=== PATIENT | female | born 1990 | race Caucasian/White ===

== ENCOUNTER 2020-11-19 06:54 | Inpatient (IN) ==
--- NOTE | 2020-11-08 09:02 | Communication Note ---
Date of Service: November 08, 2020 Dr. Purcell called questioning need for updated COVID test, as policies are in the process of changing. Patient confirmed COVID positive on 08/31/20 (lab record scanned to EMR). Patient reported she was retested on 09/15 and resulted negative. Scheduled for C/S on 11/19, at which point patient will be > 60 days from diagnosis. Spoke to Dr. Callahan to clarify protocol. As she is > 45 days beyond + test, but < 90, case will need to be reviewed by Dr. Locke. L+D made aware. If Dr. Locke feels patient does need updated COVID, will notify L[facility]D/[facility] to order and arrange, and will make patient aware.
--- NOTE | 2020-11-17 14:44 | Anesthesiology Consultation ---
Date of Service November 17, 2020 The patient had Covid 19 in August,. 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 No recent known Covid positive contacts or Covid related symptoms Pt did test Covid positive 08/31/20- symptoms included loss of taste and smell, congestion, nausea, diarr hea, cough, poor appetite- symptoms have since resolved. Pt is not getting preop Covid testing done due to having Covid in the past 90 days. Case was discussed with Dr. Locke 11/08/20= "As long as patient is asymptomatic and low-risk screening, no need for repeat COVID test. Patient reports she wears an N95 and face shield all day at work, and does not leave the house otherwise (even orders groceries for pick-up). Her also only leaves the house for work, where h e works outside and wears a mask. Patient and OB office made aware she will not need to be retested." History Surgery Operation Date: 11/19/20 08:50 Proposed Procedures p Section - Lexy Fonseca MD Height/Weight Height: 5 ft 5 in Weight: 103.873 kg Allergies Allergy/AdvReac Type Severity Reaction Status Date / Time meperidine [From Demerol] AdvReac Severe Vomiting Verified 11/18/20 08:48 Medications Home Medications Medication Instructions Recorded Confirmed Last Taken prenat.vits,mel,rly-[id number]-[id number] 1 tab PO PM 04/09/20 11/18/20 Unknown Past Medical History Medical History Acid reflux no meds Adopted Chlamydia hx > 6 yrs ago Depression with anxiety History of pre-eclampsia 2.5 yrs ago History of varicella vaccination Ovarian cyst just monitoring Placenta abruptio Past Family History Family History Denies family history of Ovarian cancer Breast cancer Colorectal cancer Uterine cancer Past Surgical History Surgical History History of x1 History of esophagogastroduodenoscopy (EGD) History of tonsillectomy Hx of cholecystectomy [place] teeth removed Social History Smoking Status: Never smoker Do You Dip or Chew Tobacco: No Hx Alcohol Use: No Hx Substance Use: No substance use type: does not use Physical Exam Vital Signs Last Vital Signs Temp 36.9 C 11/19/20 08:08 Pulse 88 11/19/20 07:13 Resp 18 11/19/20 08:08 BP 134/80 11/19/20 07:13 Testing Laboratory Results 11/19/20 07:06 Blood Type A Positive 11/19/20 07:04 Antibody Screen NEGATIVE 11/19/20 07:04
--- NOTE | 2020-11-18 17:53 | History & Physical Report ---
Date of Service November 18, 2020 Assessment & Plan (1) : (2) Previous delivery affecting , antepartum: 30 y/o at 39 wga presents for pre-op for scheduled repeat CS -VSS -FHT auscultated wnl today -Consent reviewed in detail with risks reviewed including infection, bleeding, injury to adjacent structures (bowel, bladder, ureters, blood vessels, nerves) and/or , possible need for life-saving blood transfusion and/or hysterectomy, VTE risk, anesthesia risk. Reviewed alternative to labor and pt declines. Aware would not be candidate for at this institution following second CS. Declines tubal ligation. Ample time given for questions, all questions answered to pt satisfaction, consent signed -Will sit with surgical scheduler for further instructions History of Present Illness Chief Complaint: Elective Repeat CS Primary Care Provider: Jaren Alcazar DO 30 y/o at 39 wga w/ CINTIA 11/25/20 by LMP 02/19/20 c/w [address] [place] [address]. 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: G1 pLTCS at 37 wks at [facility] emergently for placental abruption G2 current Menarche 16, cycles q28 days last pap 08/2019 neg cytology, no hx abnl pap remote hx chlamydia Allergies Allergy/AdvReac Type Severity Reaction Status Date / Time meperidine [From Demerol] AdvReac Severe Vomiting Verified 11/18/20 08:48 Home Medications Medication Instructions Recorded Confirmed Type prenat.vits,mel,evb-igzs-qaqob 1 tab PO PM 04/09/20 11/18/20 History Patient History Medical History Acid reflux no meds Adopted Chlamydia hx > 6 yrs ago Depression with anxiety History of pre-eclampsia 2.5 yrs ago History of varicella vaccination Ovarian cyst just monitoring Placenta abruptio Surgical History History of x1 History of esophagogastroduodenoscopy (EGD) History of tonsillectomy Hx of cholecystectomy [place] teeth removed Family History Denies family history of Ovarian cancer Breast cancer Colorectal cancer Uterine cancer Social History Smoking Status: Never smoker Second Hand Exposure: Yes (mom smoked); Hx Alcohol Use: No Hx Substance Use: No Preferred Language: [place] Communication Ability: Effective 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 Beliefs That Will Affect Care: None marital status: marital status details: Floyd Sample [phone] Current Living Situation: Spouse and Family Current Living Situation Comment: lives with spouse and son, 1 cat, not changing litter current occupational status: employed current occupation: [employer] in [place] Feels Safe at Home: Yes Assistive Devices: Glasses Physical Exam Constitutional: well developed and well nourished; no acute distress Respiratory: normal respiratory effort, lungs clear to auscultation no labored breathing Cardiovascular: RRR, no murmur, no edema Psychiatric: A+Ox3, euthymic affect Genitourinary: OB Exam Abdomen: + fundal height (39) and + heart tones (140s) Results & Data ([facility]) Laboratory Results OB Labs: Blood Type A Positive 04/16/20 Antibody Screen NEGATIVE 04/16/20 Hemoglobin 12.8 g/dL (12.0-16.0) 09/16/20 Hematocrit 40.1 % (37-47) 09/16/20 Mean Corpuscular Volume 85.4 fL (80-100) 04/16/20 Platelet Count 279 K/uL (130-400) 04/16/20 Rubella IgG Antibody Immune (Immune) 04/16/20 Rapid Plasma Reagin Nonreactive (Nonreactive) 04/16/20 Hepatitis B Surface Antigen Neg (Neg) 04/16/20 HIV (1&2) Ab and P24 Ag, 4th Gener Neg (Neg) 04/16/20 Glucose 1 Hour 50 gm Load 113 mg/dl (70-130) 09/16/20 OB Optional Labs: Chlamydia trachomatis RNA NOT DETECTED (NOT DETECTED) 04/16/20 Neisseria gonorrhoeae RNA NOT DETECTED (NOT DETECTED) 04/16/20 Thyroid Stimulating Hormone (TSH) 2.600 uIu/ml (0.300-4.500) 08/27/19 panorama low risk cf/sma done in prior declines MSAFP GBS neg COVID test not indicated, had covid in fall Diagnostic Findings Posterior placenta Coding Level of Care Code None Diagnoses Z34.90 Previous delivery affecting , antepartum O34.219
[~2020-11-19 06:54] MED LIST: CITRIC ACID/SODIUM CITRATE 15 ML UDC PO SCH; LACTATED RINGER'S 1,000 ML IV SCH; ceFAZolin 3,000 MG in DEXTROSE 5% 50 ML IV SCH
[2020-11-19 07:11] LABS: Basophils # (auto) 0.02 K/uL (0-0.2); Basophils % (auto) 0.2 %; Eosinophils # (auto) 0.05 K/uL (0-0.5); Eosinophils % (auto) 0.6 %; Hemoglobin 13.5 g/dL (12.0-16.0); Immature Granulocytes # (auto) 0.02 K/uL (0.00-0.02); Immature Granulocytes % (auto) 0.2 %; Lymphocytes # (auto) 1.42 K/uL (1.2-3.4); Lymphocytes % (auto) 17.6 %; Mean Corpuscular Hemoglobin 29.5 pg (25-34); Mean Corpuscular Hgb Conc 33.8 g/dL (32-36); Mean Corpuscular Volume 87.5 fL (80-100); Mean Platelet Volume 11.6 fL (7.4-10.4); Monocytes # (auto) 0.59 K/uL (0.11-0.59); Monocytes % (auto) 7.3 %; Neutrophils # (auto) 5.99 K/uL (1.4-6.5); Neutrophils % (auto) 74.1 %; Platelet Count 198 K/uL (130-400); RDW Coefficient of Variation 14.6 % (11.5-14.5); Red Blood Count 4.57 M/uL (4.2-5.4); White Blood Count 8.09 K/uL (4.8-10.8)
[2020-11-19] MEDS ORDERED: MoRPHine SULFATE PF 1 MG/ML 10 ML AMP/VIAL ONE (08:26)
[2020-11-19] MEDS ORDERED: fentaNYL citrate 100 MCG/2 ML VIAL ONE (08:26)
[2020-11-19] MEDS ORDERED: OXYTOCIN 10 UNITS/ML VIAL ONE ×2 (08:28→10:18)
--- NOTE | 2020-11-19 09:01 | History & Physical Bridge Note ---
Date of Service November 19, 2020 History & Physical Bridge Note I have examined the patient, reviewed the History & Physical and in the interval since the performance of the History & Physical I have noted the following changes of clinical significance: no changes noted. Cat 1 tracing obtained on admission.
[2020-11-19] MEDS ORDERED: ONDANSETRON INJ 2 MG/ML 2 ML VIAL ONE (09:58)
[2020-11-19] MEDS ORDERED: PHENYLEPHRINE 100MCG/ML 5ML SYR ONE (09:59)
[2020-11-19] MEDS ORDERED: ePHEDrine sulfate 50 MG/ML AMP IV PRN (10:29)
[2020-11-19] MEDS ORDERED: LACTATED RINGER'S 500 ML IV PRN (10:29)
[2020-11-19] MEDS ORDERED: MoRPHine SULFATE PF 1 MG/ML 10 ML AMP/VIAL INT SPINAL ONE (10:29)
[2020-11-19] MEDS ORDERED: ONDANSETRON INJ 2 MG/ML 2 ML VIAL IV PRN ×2 (10:29→11:32)
[2020-11-19] MEDS ORDERED: NALOXONE HCL 0.4 MG/1 ML VIAL/CARP IV PRN (10:29)
[2020-11-19] MEDS ORDERED: HYDROmorphone INJ 0.5 MG/0.5 ML SYR IV PRN (10:29)
[2020-11-19] MEDS ORDERED: diphenhydrAMINE 50 MG/ML VIAL IV PRN (10:29)
[2020-11-19] MEDS ORDERED: NALOXONE HCL 0.08 MG in SYRINGE 1.8 ML IV PRN (10:29)
[2020-11-19] MEDS ORDERED: NALOXONE HCL 1 MG in SODIUM CHLORIDE 0.9% 1000ML 1,000 ML IV PRN (10:29)
[2020-11-19] MEDS ORDERED: DC INTRASPINAL MORPHINE SCH (10:30)
[2020-11-19] MEDS ORDERED: NO NARCOTICS OR SEDATIVES SCH (10:30)
[2020-11-19] MEDS ORDERED: SODIUM CHLORIDE 0.9% 1000ML 1,000 ML IV SCH (10:30)
--- NOTE | 2020-11-19 11:08 | Post Operative Brief Note ---
PG Immediate Post Op with CF Date of Surgery November 19, 2020 Pre & Post Diagnosis Operation Date: 11/19/20 08:50 Pre-Op Diagnosis: Single Intrauterine at 39 1/7 weeks gestation; History of Caesaren Section times one, esires Repeat Post-Op Diagnosis: Same;Delivery of a live male child at 1017(Main OR 3) I identified the patient and participated in the time-out.: Yes Procedure Operation Date: 11/19/20 08:50 Actual Procedures p Repeat Low Transverse Section in LD - Lexy Fonseca MD Surgeon Lexy Fonseca MD Bee Farmer MD [place] Estimated Blood Loss 600 Findings Consistent with Post-Op Diagnosis Uterus with thin lower uterine segment, L fallopian tube with salpingiosis, R fallopian tube wnl. Ovaries wnl bilaterally. Findings also include viable male infant weight 3745g, APGARS 8 and 9 at 1 and 5 minutes, respectively Fluids 2200cc crystalloid, UOP 650 clear urine Specimens Specimen Description: A. Placenta-hold B. Cord Blood Drains Garza Catheter (Draining clear urine) Anesthesia Type L&D Only Epidural Exists Complications none Disposition Accompanied Patient To Recovery: Yes Disposition: L&D
--- NOTE | 2020-11-19 11:23 | Operative Report ---
PG Post Operative Report Pre & Post Diagnosis Operation Date: 11/19/20 08:50 Pre-Op Diagnosis: Single Intrauterine at 39 1/7 weeks gestation; History of Caesaren Section times one, desires Repeat Post-Op Diagnosis: Same;Delivery of a live male child at 1017(Main OR 3) I identified the patient and participated in the time-out.: Yes Procedure Operation Date: 11/19/20 08:50 Actual Procedures p Repeat Low Transverse Section in LD - Lexy Fonseca MD Surgeon Lexy Fonseca MD Rn Icu Caty Patricia MD Estimated Blood Loss 600 Findings Consistent with Post-Op Diagnosis Uterus with thin lower uterine segment and filmy bladder adhesions. L fallopian tube with salpingiosis, R fallopian tube wnl. Ovaries wnl bilaterally. Findings also include viable male weight 3745g, APGARS 8 and 9 at 1 and 5 minutes, respectively Fluids 2200cc crystalloid, UOP 650 clear urine Specimens Cord blood, placenta for hold Drains Garza draining clear urine Anesthesia Type L&D Only Epidural Exists Complications none Disposition Accompanied Patient To Recovery: Yes Disposition: L&D Indications 30 y/o at 39 1/7 wga w/ CINTIA 11/25/20 by LMP 02/19/20 c/w 1st tri US presents for scheduled elective repeat CS. Has a history of x 1 secondary to placental abruption and non-reassuring heart tones. She was counseled regarding TOLAC vs elective repeat and had previously desired to TOLAC. However, developed anxiety regarding movement and desired to undergo repeat . She was counseled regarding risks, benefits, and alternatives and consent was signed. Category 1 tracing was noted prior to delivery. Description of Procedure The patient was taken to the operating room after consents were ensured. The patient was properly identified and surgical timeout. Spinal anesthesia was obtained without difficulty. The patient was placed in a dorsal supine position with left lateral tilt. The patient was prepped and draped in normal sterile fashion. Antibiotic prophylaxis was given per protocol. Anesthesia was tested to ensure adequate surgical levels. Pfannenstiel skin incision was performed and carried down to the underlying fascia with a knife. The fascia was then nicked in the midline and extended laterally with pickups and Voss scissors. The superior portion of the fascia was grasped with Kochers x2 and elevated off the underlying rectus muscles using the knife. While developing this plane, peritoneum was noted to have been entered without injury to underlying structures. The inferior portion of the fascia was then grasped with Karin clamps x2 and also elevated off the underlying muscles with blunt dissection. The peritoneum was then swept and abdomen was noted to be clear of adhesions. Peritoneum was then extended to provide adequate room for delivery of baby. The hand was inserted into the abdomen, uterus was noted to be clear of adhesions and not rotated. Bladder blade was inserted. Bladder flap was created in the normal fashion. Lower uterine segment was noted to be thin. A low transverse uterine incision was then made in the uterus and extended bluntly in a superior to inferior fashion. Amniotomy was made with an Allis, with clear fluid at the time of rupture. head was grasped and elevated through the hysterotomy in an atraumatic fashion. The baby delivered in OPAL position, no nuchal cord. Remainder of the body delivered without incident. Nose and mouth were bulb suctioned on the surgical field. 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 Cord segment and blood were obtained. Placenta was then expressed from the uterus. The uterus was exteriorized. Several passes were made inside the uterus to remove the remaining membranes. Attention was then turned to the hysterotomy, which was then closed with a running locked suture of 0 Vicryl on a CTX needle. Imbricating layer was then performed using 0-Monocryl. There was noted to be good hemostasis. The posterior cul-de-sac was then inspected and cleaned of clot and debris. The hysterotomy was again inspected and noted to be hemostatic. The uterus was returned to the abdomen. The right and left pericolic gutters were cleaned of all clot and debris. The hysterotomy was again noted to be hemostatic. Space of Retzius was noted to be hemostatic. The fascia was then closed with a running suture of 0 Vicryl on a CT1 needle. Subcutaneous tissue was copiously irrigated and noted to be hemostatic. Subcutaneous tissue was re-approximated using 2-0 plain gut. The skin was then closed with a running suture of 3-0 Monocryl in a subcuticular fashion. At termination of the procedure, the fundal pressure was applied and a moderate amount of lochia was expressed. Dermabond was applied to the patient. She tolerated the procedure well. All sponge, needle, instrument counts were correct x 2. I attest to the content of the Intraoperative Record and any orders documented therein. Any exceptions are noted below. OB Procedure charges OB Charges 01230 C/S
[2020-11-19] MEDS ORDERED: SUPERCREAM 0.870% 15 GM JAR EXT PRN (11:32)
[2020-11-19] MEDS ORDERED: LACTATED RINGER'S 1,000 ML IV SCH (11:32)
[2020-11-19] MEDS ORDERED: HYDROCORTISONE ACETATE 25 MG SUPP PR PRN (11:32)
[2020-11-19] MEDS ORDERED: BENZOCAINE 20% AER SPR 82.5 GM CAN EXT PRN (11:32)
[2020-11-19] MEDS ORDERED: OXYTOCIN 20 UNITS in LACTATED RINGER'S 1,000 ML IV SCH (11:32)
[2020-11-19] MEDS ORDERED: MAGNESIUM HYDROXIDE SUSP 30 ML UDC PO PRN (11:32)
[2020-11-19] MEDS ORDERED: SENNA 8.6 MG TAB PO PRN (11:32)
[2020-11-19] MEDS ORDERED: DIPHTHERIA/TETANUS/PERTUSSIS 0.5 ML SYR/VIAL IM ONE (12:00)
--- NOTE | 2020-11-19 12:19 | Anesthesiology Progress Note ---
Date of Service November 19, 2020 Anesthesia Post Procedure Vital Signs Vital Signs: Temp Pulse Resp BP Pulse Ox 11/19/20 12:14 93 H 98 11/19/20 12:11 76 106/61 11/19/20 12:09 85 99 11/19/20 12:04 79 98 11/19/20 12:01 86 115/69 11/19/20 11:59 96 H 99 11/19/20 11:54 92 H 98 11/19/20 11:51 94 H 123/75 11/19/20 11:49 83 99 11/19/20 11:44 96 H 98 11/19/20 11:41 91 H 116/65 11/19/20 11:39 90 98 11/19/20 11:34 98 H 97 11/19/20 11:31 78 116/57 L 11/19/20 11:29 88 99 11/19/20 11:24 91 H 97 11/19/20 11:21 84 115/60 11/19/20 11:19 94 H 98 11/19/20 11:14 87 96 11/19/20 11:12 85 86 L 11/19/20 11:09 83 97 11/19/20 11:04 82 96 11/19/20 11:00 90 120/62 94 11/19/20 10:59 90 95 11/19/20 09:29 93 H 97 11/19/20 09:24 87 99 11/19/20 09:19 86 99 11/19/20 09:14 85 99 11/19/20 09:09 86 99 11/19/20 08:08 36.9 C 18 11/19/20 07:13 88 134/80 Transfer of Care Handoff Completed per policy Notes Mental Status: alert / awake / arousable Patient Amnestic to Procedure: Yes Nausea / Vomiting: adequately controlled Pain: adequately controlled Airway Patency, RR, SpO2: stable & adequate BP & HR: stable & adequate Hydration State: stable & adequate Neuraxial Anesthesia: was administered and sensory block is resolving Anesthetic Complications: no major complications apparent and Pt Satisfied with anesthetic care
[2020-11-19] MEDS: KETOROLAC 30 MG/ML VIAL IV PRN (12:51)
[2020-11-19] MEDS: SIMETHICONE 80 MG CHEW PO SCH ×2 (16:22→21:00)
[2020-11-19] MEDS: DOCUSATE SODIUM 100 MG CAP PO SCH (21:00)
[2020-11-20] MEDS: KETOROLAC 30 MG/ML VIAL IV PRN (04:27)
[2020-11-20] MEDS ORDERED: diphenhydrAMINE Capsule 25 MG CAP PO PRN (04:30)
[2020-11-20] MEDS ORDERED: KETOROLAC 30 MG/ML VIAL IV PRN (04:30)
[2020-11-20] MEDS ORDERED: diphenhydrAMINE 50 MG/ML VIAL IV PRN (04:30)
[2020-11-20] MEDS ORDERED: PROMETHAZINE HCL 25 MG in SODIUM CHLORIDE 0.9% 50 ML IV PRN (04:30)
[2020-11-20 06:54] LABS: Basophils # (auto) 0.01 K/uL (0-0.2); Basophils % (auto) 0.1 %; Eosinophils # (auto) 0.06 K/uL (0-0.5); Eosinophils % (auto) 0.6 %; Hematocrit (blood only) 40.2 % (37-47); Hemoglobin 13.2 g/dL (12.0-16.0); Immature Granulocytes # (auto) 0.01 K/uL (0.00-0.02); Immature Granulocytes % (auto) 0.1 %; Lymphocytes # (auto) 1.22 K/uL (1.2-3.4); Lymphocytes % (auto) 12.1 %; Mean Corpuscular Hemoglobin 28.8 pg (25-34); Mean Corpuscular Hgb Conc 32.8 g/dL (32-36); Mean Corpuscular Volume 87.8 fL (80-100); Mean Platelet Volume 11.9 fL (7.4-10.4); Monocytes # (auto) 0.75 K/uL (0.11-0.59); Monocytes % (auto) 7.5 %; Neutrophils % (auto) 79.6 %; Platelet Count 191 K/uL (130-400); RDW Coefficient of Variation 14.6 % (11.5-14.5); RDW Standard Deviation 46.8 fL (36.4-46.3); Red Blood Count 4.58 M/uL (4.2-5.4); White Blood Count 10.05 K/uL (4.8-10.8)
[2020-11-20] MEDS: PRENATAL VITAMIN 1 TAB PO SCH (07:41)
[2020-11-20] MEDS: SIMETHICONE 80 MG CHEW PO SCH ×3 (07:41→20:33)
[2020-11-20] MEDS: FERROUS SULFATE 325 MG TAB PO SCH (07:41)
[2020-11-20] MEDS: DOCUSATE SODIUM 100 MG CAP PO SCH ×2 (07:41→20:33)
--- NOTE | 2020-11-20 07:41 | Obstetrical Progress Note ---
Date of Service November 20, 2020 Assessment & Plan (1) delivery, delivered, current hospitalization: Doing well. routine ppd#1 care. Day #:: 1 Subjective Ambulation: ambulating normally Passing Gas:: Yes Diet Tolerance:: clear liquids Lochia:: Small Feeding Type:: breast feeding jj removed but unable to void yet. Physical Exam Constitutional WD/WN, vitals as above Gastrointestinal (Abdomen) soft, appropriately tender, nd, ff at u incision--c/d/i Psychiatric A+Ox3, euthymic affect Results & Data ([facility]) Vital Signs (Past 12 Hours) Vital Signs Temp Pulse Resp BP Pulse Ox 11/20/20 07:28 36.8 C 70 18 112/72 96 11/20/20 04:30 36.9 C 70 18 121/70 99 11/20/20 01:00 18 98 11/20/20 00:00 18 96 11/19/20 22:30 20 95 11/19/20 21:00 18 96 11/19/20 20:00 36.4 C L 69 18 127/74 95
[2020-11-20] MEDS: buPROPion SR 100 MG TABCR PO SCH (09:05)
[2020-11-20] MEDS: busPIRone 5 MG TAB PO SCH ×2 (09:05→20:33)
[2020-11-20] MEDS: IBUPROFEN 600 MG TAB PO PRN ×2 (16:02→20:34)
[2020-11-20] MEDS: oxyCODONE/ACETAMINOPHEN 5mg/325mg TAB PO PRN (16:04)
[2020-11-20] MEDS ORDERED: bisacodyL 5 MG TABEC PO SCH (20:00)
[2020-11-21] MEDS: IBUPROFEN 600 MG TAB PO PRN ×3 (03:37→12:05)
[2020-11-21] MEDS: oxyCODONE/ACETAMINOPHEN 5mg/325mg TAB PO PRN ×4 (03:38→20:37)
[2020-11-21 06:18] LABS: Hemoglobin 13.1 g/dL (12.0-16.0)
[2020-11-21] MEDS: DOCUSATE SODIUM 100 MG CAP PO SCH ×2 (08:22→20:36)
[2020-11-21] MEDS: PRENATAL VITAMIN 1 TAB PO SCH (08:22)
[2020-11-21] MEDS: FERROUS SULFATE 325 MG TAB PO SCH (08:22)
[2020-11-21] MEDS: buPROPion SR 100 MG TABCR PO SCH (08:23)
[2020-11-21] MEDS: SIMETHICONE 80 MG CHEW PO SCH ×5 (08:23→20:36)
[2020-11-21] MEDS: busPIRone 5 MG TAB PO SCH ×2 (08:42→20:37)
--- NOTE | 2020-11-21 08:42 | Obstetrical Progress Note ---
Date of Service November 21, 2020 Assessment & Plan (1) delivery, delivered, current hospitalization: 30 yo POD2 from [facility], doing well -Meeting all pp milestones, H/H stable. Would like to stay until tomorrow -A+/rubella immune/formula feeding -f/u 6 weeks for appt Day #:: 1 Subjective Ambulation: ambulating normally Voiding: no voiding problems Passing Gas:: Yes Diet Tolerance:: regular diet Lochia:: Small Feeding Type:: breast feeding Pain well managed with medication Review of Systems Denies fevers, chills, n/v, CORREA, CP, SOB Physical Exam Constitutional WD/WN, vitals as above no acute distress Respiratory normal respiratory effort, lungs clear to auscultation Cardiovascular RRR, no murmur, no edema Gastrointestinal (Abdomen) Inspection/Auscultation: + abdominal surgical scar (c/d/i) Percussion/Palpation: abdomen soft; abdomen nontender fundus firm at umbilicus and NT Musculoskeletal BLE symmetric, nonerythematous, nontender, no edema Psychiatric A+Ox3, euthymic affect Results & Data ([facility]) Vital Signs (Past 12 Hours) Vital Signs Temp Pulse Resp BP Pulse Ox 11/21/20 07:32 98.4 F 82 20 127/81 98 11/21/20 00:15 98.1 F 84 17 109/72 97
[2020-11-21] MEDS ORDERED: bisacodyL 10 MG SUPP PR PRN (10:40)
[2020-11-22] MEDS: IBUPROFEN 600 MG TAB PO PRN ×2 (02:38→07:43)
[2020-11-22] MEDS: oxyCODONE/ACETAMINOPHEN 5mg/325mg TAB PO PRN (02:39)
--- NOTE | 2020-11-22 06:05 | Obstetrical Progress Note ---
Date of Service <Duarte Luevano MD - Last Filed: 11/22/20 06:59> November 22, 2020 Assessment & Plan <Duarte Luevano MD - Last Filed: 11/22/20 06:59> (1) delivery, delivered, current hospitalization: 30 yo POD3 from [facility] at 39w1d. A positive. Ab screen neg. Rubella immune. - meeting milestones - pain improving, controlled w/ medications - bottle feeding - 6 wk f/u - tentative dispo today Subjective <Duarte Luevano MD - Last Filed: 11/22/20 06:59> Ambulation: ambulating normally Voiding: no voiding problems Passing Gas:: Yes Diet Tolerance:: regular diet Lochia:: Small Feeding Type:: bottle feeding (Enfamil gentle ease) Current Pain Level(1-10): 3 (improved from yesterday) Feels ready for dispo today. Review of Systems Denies fever, chills Denies shortness of breath, chest pain, palpitations. Denies breast pain. Denies dysuria. Denies headache or changes in vision. Denies nausea/vomiting. Denies numbness, tingling, weakness. Denies calf pain Physical Exam <Duarte Luevano MD - Last Filed: 11/22/20 06:59> General: Alert, oriented. No acute distress. Cardiac: Regular rate and rhythm, no murmurs/rubs/gallops. Respiratory: Clear to auscultation bilaterally, no wheezes/rales/rhonchi. No respiratory distress. Abdomen: , soft. appropriately mild tenderness. Uterus: Uterine fundus firm, palpable 2cm below umbilicus. See attending note for examination of LTCS incision. Lower Extremities: Trace LE edema. No deep calf pain. Eva's negative bilaterally. Results & Data ([facility]) <Duarte Luevano MD - Last Filed: 11/22/20 06:59> Vital Signs (Past 12 Hours) Vital Signs Temp Pulse Resp BP Pulse Ox 11/21/20 23:20 36.4 C L 76 16 129/84 99 Medications Administered <Lexy Fonseca MD - Last Filed: 11/22/20 07:29> Co-Signing Physician Notes Resident Physician Supervision Note: I interviewed and examined the patient. Discussed with Dr. Luevano and agree with findings and plan as documented in the note. Any exceptions or clarifications are listed here: POD3 s/p rLTCS, doing well. Meeting all pp milestones. VSS, exam benign and wnl, incision c/d/i. Has hx PPD, has short course of prior anti-depressants prescribed and planning to contact PCP today or tomorrow to get appt to discuss meds. Reviewed s/s to call with. Stable for d/c home today Documented By: Lexy Fonseca MD Resident Activity Tracking <Duarte Luevano MD - Last Filed: 11/22/20 06:59> Resident Involvement: Resident Care Provided Care Provided: OB Delivery
[2020-11-22] MEDS: PRENATAL VITAMIN 1 TAB PO SCH (07:41)
[2020-11-22] MEDS: FERROUS SULFATE 325 MG TAB PO SCH (07:41)
[2020-11-22] MEDS: busPIRone 5 MG TAB PO SCH (07:42)
[2020-11-22] MEDS: DOCUSATE SODIUM 100 MG CAP PO SCH (07:42)
[2020-11-22] MEDS: buPROPion SR 100 MG TABCR PO SCH (07:42)
--- NOTE | 2020-11-23 08:29 | Discharge Summary ---
Date of Service November 23, 2020 Admission HPI Per Admitting Provider 30 y/o at 39 wga w/ CINTIA 11/25/20 by LMP 02/19/20 c/w 1st tri . 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: G1 pLTCS at 37 wks at [facility] emergently for placental abruption G2 current Menarche 16, cycles q28 days last pap 08/2019 neg cytology, no hx abnl pap remote hx chlamydia Admission Exam (Per Admitting) Constitutional WD/WN, vitals as above well developed and well nourished; no acute distress Respiratory normal respiratory effort, lungs clear to auscultation no labored breathing Cardiovascular RRR, no murmur, no edema Psychiatric A+Ox3, euthymic affect Genitourinary OB Exam Abdomen: + fundal height (39) and + heart tones (140s) Discharge Data Consultations 11/19/20 06:58 Consult Anesthesiology Stat Procedures Performed Operation Date: 11/19/20 08:50 Actual Procedures p Repeat Section in LD - Lexy Fonseca MD Hospital Course (1) delivery, delivered, current hospitalization: Pt underwent repeat section, see operative report for details. Remainder of postoperative course was uncomplicated and she was stable for discharge on POD3. She was restarted on her pre- anti-depressants for hx of depression with plan to f/u with her PCP for this after discharge. Coding Level of Care Code None Diagnoses delivery, delivered, current hospitalization O82
== END 2020-11-22 12:00 | disposition home or self-care (01) | DRG 788 ==
LOC: 4S1 06:54 → 4S2 15:26 → EDSTATUS 11-26 09:10